=== PATIENT | male | born 1975 | race Caucasian/White ===

== ENCOUNTER 2017-03-18 13:45 | Inpatient (IN) | payer OTHER ==
[2017-03-18] MEDS ORDERED: HYDROmorphone 1 MG/ML 1 ML SYRINGE IVP STA ×2 (14:22→16:15)
[2017-03-18] MEDS ORDERED: SODIUM CHLORIDE 0.9% 1,000 ML IV ONE (14:22)
--- NOTE | 2017-03-18 14:25 | ED ---
Abdominal Pain HPI - General Source: patient, RN notes reviewed Mode of arrival: ambulatory Limitations: no limitations <Yashira Carpio - Last Filed: 03/18/17 16:36> <Tobin Allred - Last Filed: 03/18/17 16:39> - General Chief Complaint: Abdominal Pain Stated Complaint: Abd Pain Time Seen by Provider: 03/18/17 14:11 - History of Present Illness Initial Comments: Patient is a 41-year-old male presents emergency room for evaluation of abdominal pain. Patient states last night he began developing left lower quadrant pain. Patient states the pain has not subsided. Patient states the pain is getting worse. patient states he is having 8 out of 10 constant sharp pain. Patient denies nausea or vomiting. Patient denies diarrhea or constipation. Patient denies fevers or chills. Patient denies chest pain or shortness of breath. Patient denies history of abdominal surgeries. Patient denies recent travel outside the country. Patient denies recently taking recent antibiotics. Patient denies trying any new foods. Patient states he took Tabitha-[place] with No Relief of Symptoms. Patient Denies Back Pain or Flank Pain. Patient Denies Pain or Burning during Urination, Trouble Urinating or Blood in Urine. Patient Denies Blood in Stools. Patient Denies Dark Tarry Stools. (Yashira Carpio) - Related Data Previous Rx's Medication Instructions Recorded Docusate [Colace] 100 mg PO BID #30 capsule 03/18/17 Hydrocodone/Acetaminophen [[place] 1 each PO Q6HR PRN #20 tab 03/18/17 5-325] Allergies Allergy/AdvReac Type Severity Reaction Status Date / Time No Known Allergies Allergy Verified 03/18/17 14:31 Review of Systems ROS Other: All systems not noted in ROS Statement are negative. <Yashira Carpio - Last Filed: 03/18/17 16:36> ROS Other: All systems not noted in ROS Statement are negative. <Tobin Allred - Last Filed: 03/18/17 16:39> ROS Statement: Those systems with pertinent positive or pertinent negative responses have been documented in the HPI. Past Medical History Past Medical History: Asthma Additional Past Medical History / Comment(s): testicular torsion History of Any Multi-Drug Resistant Organisms: None Reported Additional Past Surgical History / Comment(s): testicular surg Past Psychological History: No Psychological Hx Reported Smoking Status: Never smoker Past Alcohol Use History: Occasional Past Drug Use History: None Reported <Yashira Carpio - Last Filed: 03/18/17 16:36> General Exam Limitations: no limitations General appearance: alert, in no apparent distress Head exam: Present: atraumatic, normocephalic, normal inspection Eye exam: Present: normal appearance ENT exam: Present: normal exam Neck exam: Present: normal inspection Respiratory exam: Present: normal lung sounds bilaterally. Absent: respiratory distress Cardiovascular Exam: Present: regular rate, normal rhythm, normal heart sounds GI/Abdominal exam: Present: soft, tenderness (mild RLQ, LLQ), normal bowel sounds. Absent: distended, guarding, rebound, rigid Extremities exam: Present: normal inspection Back exam: Present: normal inspection Neurological exam: Present: alert, oriented X3, CN II-XII intact, normal gait Psychiatric exam: Present: normal affect, normal mood Skin exam: Present: warm, dry, intact, normal color. Absent: rash <Yashira Carpio - Last Filed: 03/18/17 16:36> <Tobin Allred - Last Filed: 03/18/17 16:39> - General Exam Comments Initial Comments: laying in exam room, no distress. (Yashira Carpio) Medical Decision Making - Lab Data Result diagrams: 03/18/17 14:24 03/18/17 14:24 <Yashira Carpio - Last Filed: 03/18/17 16:36> - Lab Data Result diagrams: 03/18/17 14:24 03/18/17 14:24 <Tobin Allred - Last Filed: 03/18/17 16:39> - Medical Decision Making Medical decision-making. Patient's white count 16 hemoglobin 16 hematocrit of 47, potassium 4.3 with a BUN 14 creatinine 0.8 GFR greater than 60 and a sugar 105. Amylase lipase normal limits. CT the abdomen was done and reviewed by radiologist his final impression is there is evidence of dilated fluid-filled appendix consistent with appendicitis as read by Dr. Irwin. Patient's history findings the patient had what last night. Decreased appetite. His main complaint upon arrival to emergency room her discomfort more to the left side of the abdomen. He does report that initially started around the periumbilical area. On examination though he has positive McBurney sign. We did discuss possibility of localized inflammation i.e. peritonitis. The patient will be started on Zosyn. His case discussed with on-call general surgeon Dr. Johnston, she'll take the patient to the operating room after examination. Dr. Allred (Tobin Allred) - Lab Data Lab Results 03/18/17 03/18/17 Range/Units 14:24 14:24 WBC 16.2 H (3.8-10.6) k/uL RBC 5.33 (4.30-5.90) m/uL Hgb 16.4 (13.0-17.5) gm/dL Hct 47.0 (39.0-53.0) % MCV 88.2 (80.0-100.0) fL MCH 30.8 (25.0-35.0) pg MCHC 34.9 (31.0-37.0) g/dL RDW 12.7 (11.5-15.5) % Plt Count 223 (150-450) k/uL Neutrophils % 76 % Lymphocytes % 18 % Monocytes % 4 % Eosinophils % 2 % Basophils % 0 % Neutrophils # 12.2 H (1.3-7.7) k/uL Lymphocytes # 2.8 (1.0-4.8) k/uL Monocytes # 0.7 (0-1.0) k/uL Eosinophils # 0.2 (0-0.7) k/uL Basophils # 0.0 (0-0.2) k/uL Sodium 142 (137-145) mmol/L Potassium 4.0 (3.5-5.1) mmol/L Chloride 105 (98-107) mmol/L Carbon Dioxide 24 (22-30) mmol/L Anion Gap 13 mmol/L BUN 14 (9-20) mg/dL Creatinine 0.80 (0.66-1.25) mg/dL Est GFR (MDRD) Af Amer >60 (>60 ml/min/1.73 sqM) Est GFR (MDRD) Non-Af >60 (>60 ml/min/1.73 sqM) Glucose 105 H (74-99) mg/dL Calcium 10.0 (8.4-10.2) mg/dL Total Bilirubin 1.3 (0.2-1.3) mg/dL AST 28 (17-59) U/L ALT 48 (21-72) U/L Alkaline Phosphatase 84 (38-126) U/L Total Protein 7.6 (6.3-8.2) g/dL Albumin 4.5 (3.5-5.0) g/dL Amylase 49 (30-110) U/L Lipase 95 (23-300) U/L Disposition Decision Date: 03/18/17 <Yashira Carpio - Last Filed: 03/18/17 16:36> <Tobin Allred - Last Filed: 03/18/17 16:39> Clinical Impression: Acute appendicitis Disposition: HOME SELF-CARE Condition: Stable Additional Instructions: No heavy lifting more than 10 lbs for 6 weeks after surgery. Ok to shower. No soaking bath Prescriptions: Hydrocodone/Acetaminophen [[place] 5-325] 1 each PO Q6HR PRN #20 tab PRN Reason: Pain Docusate [Colace] 100 mg PO BID #30 capsule Referrals: Kailyn Johnston MD [STAFF PHYSICIAN] - 03/27/17 None,Stated [Primary Care Provider] - 1-2 days
[2017-03-18 14:41] LABS: Basophils % (A) 0 %; CH 31.9; CHCM 36.3; Eosinophils # (A) 0.2 k/uL (0-0.7); Eosinophils % (A) 2 %; HDW 2.61; HGB 16.4 gm/dL (13.0-17.5); Luc # (Auto) 0.17; Luc % (Auto) 1; Lymphocytes # (A) 2.8 k/uL (1.0-4.8); Lymphocytes % (A) 18 %; MCH 30.8 pg (25.0-35.0); MCHC 34.9 g/dL (31.0-37.0); MCV 88.2 fL (80.0-100.0); Mean Platelet Volume 6.8; Monocytes # (A) 0.7 k/uL (0-1.0); Monocytes % (A) 4 %; Neutrophils # (A) 12.2 k/uL (1.3-7.7); Neutrophils % (A) 76 %; RBC 5.33 m/uL (4.30-5.90); RDW 12.7 % (11.5-15.5); WBC 16.2 k/uL (3.8-10.6); WBC (Perox) 16.34
[2017-03-18 14:53] LABS: ALT 48 U/L (21-72); AST 28 U/L (17-59); Alkaline Phosphatase 84 U/L (38-126); Amylase 49 U/L (30-110); Anion Gap 13 mmol/L; Blood Urea Nitrogen 14 mg/dL (9-20); Carbon Dioxide 24 mmol/L (22-30); Chloride 105 mmol/L (98-107); Glucose 105 mg/dL (74-99); Non-African American GFR(MDRD) >60 (>60 ml/min/1.73 sqM); Sodium 142 mmol/L (137-145); Total Bilirubin 1.3 mg/dL (0.2-1.3); Total Protein 7.6 g/dL (6.3-8.2)
--- NOTE | 2017-03-18 15:05 | XR ---
EXAMINATION TYPE: XR KUB DATE OF EXAM: 03/18/2017 2:48 PM COMPARISON: NONE HISTORY: Abdominal pain TECHNIQUE: 2 views FINDINGS: Bowel gas pattern is normal. There is no sign of intestinal obstruction or pneumoperitoneum . Fecal pattern is normal. There are no pathologic calcifications over the kidneys. Lung bases are cl ear. IMPRESSION: Nonacute abdomen.
[2017-03-18] MEDS ORDERED: RX INFO: IV CONTRAST WAS GIVEN 1 EACH MISC MISCELLANE PRN (15:27)
--- NOTE | 2017-03-18 16:08 | CT ---
EXAMINATION TYPE: CT abdomen pelvis w con DATE OF EXAM: 03/18/2017 3:55 PM COMPARISON: NONE HISTORY: Abdominal pain and vomiting. CT DLP: 1195 mGycm Automated exposure control for dose reduction was used. TECHNIQUE: Helical acquisition of images was performed from the lung bases through the pelvis. CONTRAST: Performed with Oral Contrast and with IV Contrast, patient injected with 100 mL of Omnipaque 300. FINDINGS: Lung bases are clear. There is no pleural effusion. Heart size is normal. Liver spleen pancreas gallbladder appear normal. Bile ducts are not dilated. There is no adrenal mass . Kidneys show satisfactory contrast opacification. There is no hydronephrosis. There is no retroperi toneal adenopathy. There is no ascites. Bladder distends smoothly. I see no intestinal wall thickenin g. There are no dilated loops. Appendix appears to be thickened up to 14 mm. I see no definite surrou nding inflammatory changes. IMPRESSION: THERE IS EVIDENCE OF A DILATED FLUID-FILLED APPENDIX CONSISTENT WITH APPENDICITIS.
[2017-03-18] MEDS ORDERED: ONDANSETRON 4 MG/2 ML VIAL IVP PRN ×2 (16:28→16:36)
[2017-03-18] MEDS ORDERED: NALOXONE 0.4 MG/ML 1 ML VIAL IV PRN (16:28)
[2017-03-18] MEDS ORDERED: PIPERACILLIN-TAZOBACTAM 3.375 GM in DEXTROSE/WATER 1 50ML.BAG IVPB STA (16:30)
--- NOTE | 2017-03-18 16:34 | P.GSHP ---
History of Present Illness H&P Date: 03/18/17 Chief Complaint: Acute appendicitis 41 yrs old male presents with one day history of abdominal pain . Pain now localised in right lower abdomen. No fever, chills, rigors. No nausea or vomiting - Review of Systems Comment: All negative Past Medical History Past Medical History: Asthma Additional Past Medical History / Comment(s): testicular torsion History of Any Multi-Drug Resistant Organisms: None Reported Additional Past Surgical History / Comment(s): testicular surg Past Psychological History: No Psychological Hx Reported Smoking Status: Never smoker Past Alcohol Use History: Occasional Past Drug Use History: None Reported Medications and Allergies Allergies Allergy/AdvReac Type Severity Reaction Status Date / Time No Known Allergies Allergy Verified 03/18/17 14:31 Surgical - Exam Vital Signs Temp Pulse Resp BP Pulse Ox 96.9 F L 62 18 122/83 97 03/18/17 14:08 03/18/17 14:08 03/18/17 14:08 03/18/17 14:08 03/18/17 14:08 - General well developed - ENT normal mucosa, no hearing loss - Respiratory normal respiratory effort - Cardiovascular Rhythm: regular - Abdomen Abdomen: tender - Integumentary no rash - Musculoskeletal normal gait - Psychiatric oriented to time, oriented to person, oriented to place, memory intact Results - Labs 03/18/17 14:24 03/18/17 14:24 Abnormal Lab Results - Last 24 Hours (Table) 03/18/17 03/18/17 Range/Units 14:24 14:24 WBC 16.2 H (3.8-10.6) k/uL Neutrophils # 12.2 H (1.3-7.7) k/uL Glucose 105 H (74-99) mg/dL Diabetes panel 03/18/17 Range/Units 14:24 Sodium 142 (137-145) mmol/L Potassium 4.0 (3.5-5.1) mmol/L Chloride 105 (98-107) mmol/L Carbon Dioxide 24 (22-30) mmol/L BUN 14 (9-20) mg/dL Creatinine 0.80 (0.66-1.25) mg/dL Glucose 105 H (74-99) mg/dL Calcium 10.0 (8.4-10.2) mg/dL AST 28 (17-59) U/L ALT 48 (21-72) U/L Alkaline Phosphatase 84 (38-126) U/L Total Protein 7.6 (6.3-8.2) g/dL Albumin 4.5 (3.5-5.0) g/dL Calcium panel 03/18/17 Range/Units 14:24 Calcium 10.0 (8.4-10.2) mg/dL Albumin 4.5 (3.5-5.0) g/dL Pituitary panel 03/18/17 Range/Units 14:24 Sodium 142 (137-145) mmol/L Potassium 4.0 (3.5-5.1) mmol/L Chloride 105 (98-107) mmol/L Carbon Dioxide 24 (22-30) mmol/L BUN 14 (9-20) mg/dL Creatinine 0.80 (0.66-1.25) mg/dL Glucose 105 H (74-99) mg/dL Calcium 10.0 (8.4-10.2) mg/dL Adrenal panel 03/18/17 Range/Units 14:24 Sodium 142 (137-145) mmol/L Potassium 4.0 (3.5-5.1) mmol/L Chloride 105 (98-107) mmol/L Carbon Dioxide 24 (22-30) mmol/L BUN 14 (9-20) mg/dL Creatinine 0.80 (0.66-1.25) mg/dL Glucose 105 H (74-99) mg/dL Calcium 10.0 (8.4-10.2) mg/dL Total Bilirubin 1.3 (0.2-1.3) mg/dL AST 28 (17-59) U/L ALT 48 (21-72) U/L Alkaline Phosphatase 84 (38-126) U/L Total Protein 7.6 (6.3-8.2) g/dL Albumin 4.5 (3.5-5.0) g/dL - Imaging CT scan - abdomen: other (Ct abdomen and pelvis reviewed: Dilated appendix s/o acute appendicitis) Assessment and Plan (1) Acute appendicitis Status: Acute (2) Asthma Status: Acute Plan: 1. Acute appendicitis 2. Laparoscopic appendectomy possible open 3. Risks, benefits and potential complications iscussed including bleeding and infection and possibility of converting to open 4. IV Zosyn 5. Heparin 5000Units SQ x 1 6. Bilateral SCDs
[2017-03-18] MEDS ORDERED: HYDROcodone/APAP 5-325MG 1 EACH TAB PO PRN (16:36)
[2017-03-18 16:41] LABS: Appearance,Urine Clear (Clear); Bilirubin,Urine Negative (Negative); Glucose,Urine (UA) Negative (Negative); Ketones,Urine 2+ (Negative); Leukocyte Esterase,Urine Negative (Negative); Nitrite,Urine Negative (Negative); PH, Urine 5.5 (5.0-8.0); Protein,Urine Negative (Negative); UA Billing (MACRO vs. MICRO) CHEM; Urobilinogen,Urine <2.0 mg/dL (<2.0)
[2017-03-18 16:52] LABS: Specific Gravity,Urine >1.050 (1.001-1.035)
[2017-03-18] MEDS: SODIUM CHLORIDE 0.9% 1,000 ML IV SCH (16:53)
[2017-03-18] MEDS ORDERED: HEPARIN SODIUM,PORCINE 5,000 UNIT/ML 1 ML VIAL ONE (17:38)
[2017-03-18] MEDS ORDERED: GLYCOPYRROLATE 0.2 MG/ML 2 ML VIAL ONE (17:38)
[2017-03-18] MEDS ORDERED: LIDOCAINE 1% INJ 10MG/ML (20 ML MDV) ONE (17:38)
[2017-03-18] MEDS ORDERED: SUCCINYLCHOLINE CHLORIDE 100 MG/5 ML SYR IV ONE (17:38)
[2017-03-18] MEDS ORDERED: KETOROLAC 30 MG/ML 1 ML VIAL ONE (17:38)
[2017-03-18] MEDS ORDERED: NEOSTIGMINE 1 MG/ML 10 ML VIAL ONE (17:38)
[2017-03-18] MEDS ORDERED: ROCURONIUM BROMIDE 10 MG/ML 10 ML VIAL IV ONE (17:38)
[2017-03-18] MEDS ORDERED: MIDAZOLAM 2 MG/2 ML VIAL ONE (17:38)
[2017-03-18] MEDS ORDERED: fentaNYL (PF) 50 MCG/ML 2 ML AMP ONE (17:38)
[2017-03-18] MEDS ORDERED: IV FLUID CONTINUATION 900 ML IV ONE (17:38)
[2017-03-18] MEDS ORDERED: PROPOFOL 10 MG/ML 20 ML VIAL IV ONE (17:38)
[2017-03-18] MEDS ORDERED: BUPIVACAIN-EPI 0.25%-1:200,000 30 ML VIAL SQ ONE (18:01)
[2017-03-18] MEDS: HYDROmorphone 1 MG/ML 1 ML SYRINGE IV PRN ×2 (18:30→18:55)
[2017-03-18] MEDS ORDERED: ALBUTEROL NEBULIZED 2.5 MG/3 ML INHALATION PRN (18:32)
--- NOTE | 2017-03-18 18:32 | P.OP ---
Date of Procedure: 03/18/17 Preoperative Diagnosis: Acute appendicitis Asthma Procedure(s) Performed: Laparoscopic appendectomy Anesthesia: GISELL local Surgeon: Kailyn Johnston Pathology: other Condition: stable Disposition: PACU Indications for Procedure: 41 years old male presented with acute appendicitis. Informed consent obtained patient elected to undergo laparoscopic appendectomy possible open Operative Findings: Acute appendicitis Description of Procedure: The patient was brought to the operating room and placed in supine position with left arm tucked and a footboard was placed. General anesthesia with endotracheal intubation was performed as per anesthesia team. A Lewis catheter was inserted under sterile aseptic precautions. Chlorhexidine was used to prep the abdomen followed by application of sterile drapes. A timeout was performed to verify correct patient and correct procedure. Patient was confirmed to receive perioperative IV antibiotics, subcutaneous heparin for VTE prophylaxis and bilateral SCDs were placed. A 5 mm skin incision was made in the left anterior axillary line and a Veress needle was inserted into the peritoneal cavity and CO2 insufflated to a pressure of 15 mmHg. A 5 mm Optiview trocar was loaded on a 5 mm 30 laparoscope and peritoneal cavity was entered under direct vision. An additional 5 mm trocar was placed in the suprapubic location in midline and a 12 mm trocar in the supraumbilical location. Patient was placed in Trendelenburg with right side up. The appendix was identified. There were fibrinopurulent exudates in the right lower quadrant. The appendix was grasped using a laparoscopic [place] instrument. A suction irrigation device was used to gently dissecting appendix from the surrounding tissue. All the fibrinous exudates were removed. A window was made in the mesoappendix close to the cecal base using a [place] dissector. Laparoscopic Ligasure was used to divide the mesoappendix. No bleeding noted from the mesoappendiceal stump. The appendix was divided at its base, at the confluence of three tenia using Ethicon stapler 45 blue loadx2 The staple line was intact without evidence of bleeding. The appendix was placed in an endocatch bag and was retrieved through the supraumbilical port site. All the trocar sites were examined and no evidence of bleeding. Excess fluid was suctioned out. The 12 mm trocar site was closed using three transfascial sutures of 0 Vicryl which were placed using a Ammon Avelina device. Local anesthetic was infiltrated along all the ports sites. The sponge, instrument and needle count were correct x2. CO2 gas was evacuated and trocars were removed. 4-0 Monocryl was used to close the skin incisions followed by Dermabond skin glue. Lewis catheter was discontinued. Patient tolerated the procedure well and was taken to post anesthesia care unit in stable condition.
[2017-03-18] MEDS ORDERED: MEPERIDINE 50 MG/ML SYRINGE IVP ONE (18:52)
[2017-03-19 00:15] VITALS: BMI 30.2
[2017-03-19] MEDS ORDERED: HEPARIN SODIUM,PORCINE 5,000 UNIT/ML 1 ML VIAL SQ ONE (07:00)
[2017-03-19 08:11] VITALS: BP 107/66; PULSE 85; RESP 17; TEMP 98.9
[2017-03-19 08:18] LABS: Basophils % (A) 0 %; CH 31.9; CHCM 36.3; Eosinophils # (A) 0.1 k/uL (0-0.7); Eosinophils % (A) 1 %; HCT 38.6 % (39.0-53.0); HGB 13.5 gm/dL (13.0-17.5); Luc # (Auto) 0.11; Luc % (Auto) 1; Lymphocytes # (A) 2.1 k/uL (1.0-4.8); Lymphocytes % (A) 20 %; MCH 30.9 pg (25.0-35.0); MCHC 35.1 g/dL (31.0-37.0); MCV 88.2 fL (80.0-100.0); Mean Platelet Volume 6.8; Monocytes # (A) 0.7 k/uL (0-1.0); Monocytes % (A) 7 %; Neutrophils # (A) 7.8 k/uL (1.3-7.7); Neutrophils % (A) 72 %; RBC 4.38 m/uL (4.30-5.90); RDW 12.5 % (11.5-15.5); WBC 10.8 k/uL (3.8-10.6); WBC (Perox) 10.87
[2017-03-19] MEDS: SODIUM CHLORIDE 0.9% 1,000 ML IV SCH (08:54)
[2017-03-19] MEDS ORDERED: PANTOPRAZOLE 40 MG/10 ML VIAL IV SCH (09:00)
[2017-03-19 09:07] LABS: ALT 34 U/L (21-72); AST 18 U/L (17-59); Alkaline Phosphatase 60 U/L (38-126); Anion Gap 7 mmol/L; Blood Urea Nitrogen 11 mg/dL (9-20); Calcium 8.5 mg/dL (8.4-10.2); Carbon Dioxide 27 mmol/L (22-30); Chloride 105 mmol/L (98-107); Glucose 90 mg/dL (74-99); Non-African American GFR(MDRD) >60 (>60 ml/min/1.73 sqM); Potassium 3.6 mmol/L (3.5-5.1); Sodium 139 mmol/L (137-145); Total Bilirubin 1.8 mg/dL (0.2-1.3); Total Protein 6.2 g/dL (6.3-8.2)
--- NOTE | 2017-03-19 10:58 | P.DS ---
<Jenna Hdz - Last Filed: 03/19/17 10:54> Providers Date of admission: 03/18/17 16:40 Expected date of discharge: 03/19/17 Attending physician: Kailyn Johnston Primary care physician: Stated None Hospital Course: 31-year-old male presented on the day of admission to the emergency room with a chief complaint of developing right lower abdominal pain onset 1 day prior. Patient denied any cough fever or chills. Patient denied any nausea vomiting. Patient denies change in bowel habits patient was seen in the emergency room did undergo a CAT scan abdomen pelvis it showed a dilated appendix consistent with acute appendicitis A surgical consultation was requested. Patient was seen by Dr. johnston with patient underwent a laparoscopic appendectomy. Postop there were no events. Patient was felt stable to be discharged on the 19 of March Impression discharge diagnosis Present on admission right lower abdominal pain consistent with appendicitis Postop laparoscopic appendectomy on March 18 CAT scan abdomen pelvis consistent with acute appendicitis The above dictated assessment and findings were discussed with dr johnston . Impression and the plan of care have been dictated as directed. Jenna Hdz nurse practitioner acting as a scribe for dr durbin Patient Condition at Discharge: Stable Plan - Discharge Summary New Discharge Prescriptions: Docusate [Colace] 100 mg PO BID #30 capsule Hydrocodone/Acetaminophen [[place] 5-325] 1 each PO Q6HR PRN #20 tab PRN Reason: Pain Discharge Medication List Docusate [Colace] 100 mg PO BID #30 capsule 03/18/17 [Rx] Hydrocodone/Acetaminophen [[place] 5-325] 1 each PO Q6HR PRN #20 tab 03/18/17 [Rx] Follow up Appointment(s)/Referral(s): Kailyn Johnston MD [STAFF PHYSICIAN] - 03/27/17 11:20 am None,Stated [Primary Care Provider] - 1-2 days Patient Instructions/Handouts: Laparoscopic Appendectomy (DC) Activity/Diet/Wound Care/Special Instructions: No heavy lifting more than 10 lbs for 6 weeks after surgery. Ok to shower. No soaking bath Slowly increase diet Discharge Disposition: HOME SELF-CARE <Kailyn Johnston - Last Filed: 03/19/17 12:36> - Discharge Diagnosis(es) (1) Acute appendicitis Current Visit: Yes Status: Acute (2) Asthma Current Visit: Yes Status: Acute Hospital Course: 41 yr old male
== END 2017-03-19 13:58 | disposition home or self-care (01) | DRG 343 ==
LOC: EC 13:45 → 3SUR 16:40
PROVIDERS: ADMIT Surgery; ATTEND Surgery
PROC: 0DTJ4ZZ Resection of Appendix, Percutaneous Endoscopic Approach (ICD-10-PCS; principal; 2017-03-18 17:18)
DX: K35.80 Unspecified acute appendicitis (principal); J45.909 Unspecified asthma, uncomplicated
CPT/HCPCS: 36415; 74000; 74177; 80053; 81003; 82150; 83690; 85025; 88304

== ENCOUNTER → 2017-08-06 | Outpatient (CLI) | payer OTHER ==
--- NOTE | 2017-08-06 09:21 | CT ---
EXAMINATION TYPE: CT facial bones wo con DATE OF EXAM: 08/06/2017 COMPARISON: NONE HISTORY: Patient complains of recent sinus infection. CT DLP: 649 mGycm Automated exposure control for dose reduction was used. TECHNIQUE: CT scan of the sinuses is performed without contrast, axial images are obtained, coronal r eformatted images are also reviewed. FINDINGS: The paranasal sinuses including the frontal, ethmoid, sphenoid, and maxillary sinuses bila terally are well-aerated without abnormal opacification. The ostiomeatal complex is patent bilateral ly on the coronal images. Nasal septal deviation from left to right is mild in degree. Visualized portion of mastoid air cells show no abnormal opacification. The globes are intact bilate rally. IMPRESSION: The sinuses are clear and the ostiomeatal complex is patent bilaterally. Mild nasal sept al deviation.
== END | disposition home or self-care (01) ==
LOC: RADCTMAIN 08:55
PROVIDERS: ATTEND Otolaryngology
DX: J34.2 Deviated nasal septum (principal); J32.9 Chronic sinusitis, unspecified
CPT/HCPCS: 70486